=== PATIENT | male | born 1950 | race Two or more races ===

== ENCOUNTER → 2019-10-28 | Outpatient (CLI) | payer MEDICARE ==
--- NOTE | 2019-10-28 10:28 | CT ---
EXAMINATION TYPE: CT chest wo con DATE OF EXAM: 10/28/2019 COMPARISON: Radiograph 03/08/2016 HISTORY: 69-year-old male asbestos exposure TECHNIQUE: Contiguous axial scanning of the chest without IV contrast. Coronal and sagittal reconstru ctions performed. CT DLP: 850 mGycm Automated exposure control for dose reduction was used. FINDINGS: Heart upper limits of normal size without pericardial effusion. Ectatic aortic root at 3.9 cm and ascending aorta and 3.8 cm. Bovine configuration to the aortic arch . A few mildly enlarged mediastinal lymph nodes are present measuring up to 1.6 cm right paratracheal, 1.0 cm AP window, and 2.0 cm subcarinal region. Mildly enlarged caliber to the main right and left pulmonary arteries at 2.6 and 2.7 cm, respectively , suggesting underlying pulmonary arterial hypertension. No pleural plaques are identified but there is diffuse septal lines and some subpleural microcystic c hange and groundglass density demonstrated bilaterally, greatest in the mid and lower lungs. Early ho neycombing may be present at the peripheral right base, axial image 50. No pleural effusion. Visualized upper abdomen shows numerous hypodense areas within the liver measuring up to 1.7 cm, prob able cysts or tiny layering gallstones measuring up to 6 mm. Bones: Bridging anterior endplate spondylosis mid to lower thoracic spine suggesting DISH. IMPRESSION: 1. INTERSTITIAL THICKENING, AREAS OF GROUNDGLASS, AND SUBPLEURAL MICROCYSTIC CHANGE WITH A MID AND LO WER LUNG PREDOMINANCE. THERE MAY BE EARLY HONEYCOMBING AT THE RIGHT BASE. CORRELATE FOR ETIOLOGIES MAYA CH FIBROTIC NSIP OR DEVELOPING UIP. 2. NO WELL-DEFINED PLEURAL PLAQUES OR SUSPICIOUS MASSES IDENTIFIED. 3. A [address] MONTH FOLLOW-UP CT RECOMMENDED TO ENSURE STABILITY OF A FEW ENLARGED MEDIASTINAL LYMPH NODES M EASURING UP TO 2.0 CM, POSSIBLY REACTIVE. 4. PULMONARY ARTERIAL HYPERTENSION AND CHOLELITHIASIS.
== END | disposition home or self-care (01) ==
LOC: RADCTMAIN 09:41
PROVIDERS: ATTEND Internal Medicine Sleep Medicine
DX: I27.21 Secondary pulmonary arterial hypertension (principal); K80.20 Calculus of gallbladder without cholecystitis without obstruction; R59.0 Localized enlarged lymph nodes
CPT/HCPCS: 71250

== ENCOUNTER → 2020-01-24 | Outpatient (CLI) | payer MEDICARE ==
[2020-01-24 13:48] LABS: African American GFR (CKD) >90 (>60 ml/min/1.73 sqM); Blood Urea Nitrogen 15 mg/dL (9-20); Non-African American GFR(CKD) 80 (>60 ml/min/1.73 sqM)
--- NOTE | 2020-01-24 16:08 | CT ---
EXAMINATION TYPE: CT chest w con DATE OF EXAM: 01/24/2020 COMPARISON: 10/28/2019 HISTORY: Follow up nodule. CT DLP: 563.1 mGycm, Automated exposure control for dose reduction was used. CONTRAST: Performed injected with 100 mL of Isovue 300. TECHNIQUE: Axial images were obtained at 5 mm thick sections. Reconstructed images are reviewed on [employer] computer in the coronal plane. FINDINGS: Portion of the thyroid visualized is normal. Increased peripheral lung markings appear suggestive for pulmonary fibrosis, stable from comparison. This is greater at the lung bases. Differential diagnosis remains as previously discussed. There is a 1.2 cm pretracheal lymph node on previous measurement 1.3 cm. A 1.4 cm enlarged lymph nod e adjacent to the aortic arch has increased in size from 1.0 cm. And 1.0 cm pretracheal node is essen tially stable from comparison. The ascending aorta diameter at the level of the main pulmonary artery is 3.7 cm. The main pulmonary artery diameter at the bifurcation is 2.[address] sections are obtained through the upper abdomen. Hepatic cysts are present cholelithiasis is noted. IMPRESSIONS: 1. There is enlargement of a periaortic arch lymph node was remaining lymphadenopathy remaining stabl e. 2. Lung changes appear more compatible with pulmonary fibrosis 3. Cholelithiasis
== END | disposition home or self-care (01) ==
LOC: RADCTMAIN 12:45
PROVIDERS: ATTEND Internal Medicine Sleep Medicine
DX: R59.1 Generalized enlarged lymph nodes (principal)
CPT/HCPCS: 82565; 84520; 71260; 36415; Q9967

== ENCOUNTER → 2024-07-26 | Outpatient (CLI) | payer MEDICARE ==
[2024-07-26 10:14] LABS: African American GFR (CKD) >90 (>60 ml/min/1.73 sqM); Blood Urea Nitrogen 13 mg/dL (9-20); Non-African American GFR(CKD) >90 (>60 ml/min/1.73 sqM)
--- NOTE | 2024-07-26 16:33 | CT ---
EXAMINATION TYPE: CT chest w con DATE OF EXAM: 07/26/2024 10:43 AM COMPARISON: 01/24/2020 CLINICAL INDICATION: Male, 73 years old with history of R91.1 SPN, TECHNIQUE: Axial images were obtained at 5 mm thick sections. Reconstructed images are reviewed on [employer] computer in the coronal plane. Contrast used: mL of , (none if empty) Oral contrast used: (none if empty) CT DLP: 591.00 mGycm, Automated exposure control for dose reduction was used. FINDINGS: Portion of the thyroid visualized is normal. Peripheral increased lung markings are present in the on the basis of pulmonary fibrosis. This is gre ater at the lung bases. There is a 1.4 cm nodule adjacent to the aortic arch. Pretracheal lymphadenopathy is present measured 1.5 x 1.1 cm. Several smaller lymph nodes are present. There is an enlarged subcarinal lymph node me asuring 2.3 cm. Right hilar is present measuring 1.3 x 1.0 cm. The ascending aorta diameter at the l evel of the main pulmonary artery is 3.8 cm. The main pulmonary artery diameter at the bifurcation i s 3.[address] sections are obtained through the upper abdomen. Scattered small ill-defined nodules are w ithin the liver. Metastasis should be considered. Findings appear to be new from IMPRESSION: 1. Enlarged mediastinal adenopathy was present previously but is increased in size over the interval. 2. Progressive pulmonary fibrosis especially at the lung bases. [facility], , 07/26/2024 4:31 PM
== END | disposition home or self-care (01) ==
LOC: RADCTMAIN 09:09
PROVIDERS: ATTEND Internal Medicine Sleep Medicine
DX: J84.10 Pulmonary fibrosis, unspecified (principal); R91.1 Solitary pulmonary nodule; R60.0 Localized edema
CPT/HCPCS: 82565; 84520; 71260; 36415; Q9967

== ENCOUNTER 2024-12-21 06:09 | Day surgery (SDC) | payer MEDICARE ==
[2024-12-17 14:25] VITALS: BMI 35.4
[2024-12-21 07:04] VITALS: BP 154/81; PULSE 67; RESP 18; TEMP 97
[2024-12-21 07:29] LABS: Basophils # (A) 0.07 10*3/uL (0.00-0.10); Basophils % (A) 0.7 %; Eosinophils # (A) 0.44 10*3/uL (0.04-0.35); Eosinophils % (A) 4.6 %; HCT 43.9 % (39.6-50.0); HGB 14.5 g/dL (13.0-17.0); Lymphocytes # (A) 2.50 10*3/uL (0.90-5.00); Lymphocytes % (A) 25.9 %; MCH 30.7 pg (27.0-32.0); MCHC 33.0 g/dL (32.0-37.0); MCV 93.0 fL (80.0-97.0); Monocytes # (A) 0.70 10*3/uL (0.20-1.00); Monocytes % (A) 7.2 %; Neutrophils # (A) 5.93 10*3/uL (1.80-7.70); Neutrophils % (A) 61.4 %; Platelet Count 369 10*3/uL (140-440); RBC 4.72 10*6/uL (4.40-5.60); RDW 13.1 % (11.5-14.5); WBC 9.66 10*3/uL (4.50-10.00)
[2024-12-21 07:58] LABS: African American GFR (CKD) >90 (>60 ml/min/1.73 sqM); Anion Gap 9 mmol/L; Blood Urea Nitrogen 17 mg/dL (9-20); Calcium 9.4 mg/dL (8.4-10.2); Carbon Dioxide 27 mmol/L (22-30); Chloride 103 mmol/L (98-107); Glucose 107 mg/dL (74-99); Non-African American GFR(CKD) >90 (>60 ml/min/1.73 sqM); Potassium 4.1 mmol/L (3.5-5.1); Sodium 139 mmol/L (137-145)
== END 2024-12-21 08:19 | disposition home or self-care (01) ==
LOC: CATHCVL 06:09
PROVIDERS: ATTEND Internal Medicine Hematology & Oncology
DX: C76.0 Malignant neoplasm of head, face and neck (principal)
CPT/HCPCS: 36573; 80048; 85025

== ENCOUNTER 2024-12-24 13:24 | Day surgery (SDC) | payer MEDICARE ==
[2024-12-24 13:40] VITALS: BP 138/74; RESP 16; TEMP 98.2
[2024-12-24 14:43] VITALS: PULSE 64
--- NOTE | 2024-12-24 15:24 | XR ---
EXAMINATION TYPE: XR chest 1V portable DATE OF EXAM: 12/24/2024 3:18 PM COMPARISON: 03/08/2016 CLINICAL INDICATION: Male, 74 years old with history of POST PICC LINE PLACEMENT, TECHNIQUE: XR chest 1V portable view(s) obtained. FINDINGS: The heart size is enlarged. The pulmonary vasculature is prominent. Scattered mild increased lung markings are present. Correlate for pulmonary edema. PICC line has been placed on the right with tip in the superior vena cava region. IMPRESSION: 1. Clinical correlation for congestive heart failure. 2. PICC line placed with the tip in superior vena cava region [facility], , 12/24/2024 3:22 PM
== END 2024-12-24 14:45 | disposition home or self-care (01) ==
LOC: CATHCVL 13:24
PROVIDERS: ATTEND Internal Medicine Hematology & Oncology
DX: C76.0 Malignant neoplasm of head, face and neck (principal); D72.820 Lymphocytosis (symptomatic); I11.9 Hypertensive heart disease without heart failure; E78.5 Hyperlipidemia, unspecified; J44.9 Chronic obstructive pulmonary disease, unspecified; M12.9 Arthropathy, unspecified; Z79.82 Long term (current) use of aspirin; Z79.1 Long term (current) use of non-steroidal anti-inflammatories (NSAID); Z79.899 Other long term (current) drug therapy; Z86.73 Personal history of transient ischemic attack (TIA), and cerebral infarction without residual deficits
CPT/HCPCS: 36573; 71045